=== PATIENT | male | born 1965 | race Caucasian/White ===

== ENCOUNTER 2019-07-15 19:49 | Emergency (ER) | payer MEDICAID ==
[~2019-07-15] VITALS: Ht 175.3 cm; Wt 77.1 kg
[~2019-07-15 19:49] MED LIST: ADA30 PO; ATENOLOL25 PO; BAY PO; CITALOPRAM40 MG PO; CLONAZEPAM PO; FAMILY PHARMAC325 MG PO; HYDROCODONE BIT PO; K10 PO; LORAZEPAM1 PO; METOPROLOL25 MG PO; NIT0.4 SL; NITROGLYCER0.4 MG/HR SL; OMEPRAZOLE D/R20 MG PO; PRI20 PO; PRO30 PO; RAN500A PO; RANEXA500 MG PO; ROB500 PO; RYBIX ODT50 MG PO; SIMVASTATIN20 MG PO; ULT50 PO; ZOC20 PO; ZYP10 PO; [UNRECOGNIZED DRUG - OTHER] PO; [UNRECOGNIZED DRUG - OTHER] PO
[2019-07-15 19:52] VITALS: Ht 175.3 cm; Wt 77.1 kg
[2019-07-15 21:49] VITALS: BP 98/63
== END 2019-07-15 21:49 | disposition home or self-care (01) ==
LOC: ED 19:49
DX: R56.9 Unspecified convulsions (principal); I10 Essential (primary) hypertension
CPT/HCPCS: 82962